=== PATIENT | female | born 1965 | race Caucasian/White ===

== ENCOUNTER 2018-01-16 11:08 | Outpatient (CLI) | payer BC | END 2018-01-16 11:09 | disposition home or self-care (01) | LOC: BICMAMMO 11:08 | PROVIDERS: ATTEND Obstetrics & Gynecology | DX: Z12.31 Encounter for screening mammogram for malignant neoplasm of breast (principal); Z80.3 Family history of malignant neoplasm of breast | CPT/HCPCS: 77063; 77067 ==

== ENCOUNTER 2019-02-04 10:08 | Outpatient (CLI) | payer BC ==
--- NOTE | 2019-02-04 13:43 | MMO ---
Bilateral MAMMO Bilat Screen [facility]. CLINICAL HISTORY: Patient is 54 years old and is seen for screening. The patient has the following family history of breast cancer: maternal uncle, at age 77. The patient has no personal history of cancer. VIEWS: The views performed were: bilateral craniocaudal with tomosynthesis and bilateral mediolateral oblique with tomosynthesis. FILMS COMPARED: The present examination has been compared to prior imaging studies performed at [facility] on 08/30/1999, at [facility] on 05/14/2007, 03/31/2009, 04/09/2010, 04/11/2011, 05/23/2012, 06/26/2013, 07/09/2014, 08/13/2015, 08/22/2016 and 01/16/2018, and at [facility] on 11/30/2004 and 01/05/2006. MAMMOGRAM FINDINGS: The breasts are heterogeneously dense, which could obscure a lesion on mammography. There are no suspicious masses, calcifications or areas of architectural distortion. IMPRESSION: THERE IS NO MAMMOGRAPHIC EVIDENCE OF MALIGNANCY. A ROUTINE FOLLOW-UP MAMMOGRAM IN 1 YEAR IS RECOMMENDED. THE RESULTS OF THIS EXAM WERE SENT TO THE PATIENT. ACR BI-RADS Category 1 - Negative MAMMOGRAPHY NOTE: 1. A negative mammogram report should not delay a biopsy if a dominant of clinically suspicious mass is present. 2. Approximately 10% to 15% of breast cancers are not detected by mammography. 3. Adenosis and dense breasts may obscure an underlying neoplasm.
== END 2019-02-04 10:09 | disposition home or self-care (01) ==
LOC: BICMAMMO 10:08
PROVIDERS: ATTEND Obstetrics & Gynecology
DX: Z12.31 Encounter for screening mammogram for malignant neoplasm of breast (principal); Z80.3 Family history of malignant neoplasm of breast
CPT/HCPCS: 77063; 77067

== ENCOUNTER 2019-06-10 10:01 | Outpatient (CLI) | payer BC ==
--- NOTE | 2019-06-10 11:01 | MMO ---
Right Breast MAMMO Unilat Diag [facility] RT+[facility]. CLINICAL HISTORY: Patient is 54 years old and is seen for diagnostic exam and palpable abnormality in the right breast. The patient has the following family history of breast cancer: maternal uncle, at age 77. The patient has no personal history of cancer. VIEWS: The views performed were: right craniocaudal with tomosynthesis; right mediolateral oblique with tomosynthesis; and right mediolateral with tomosynthesis. FILMS COMPARED: The present examination has been compared to prior imaging studies performed at [facility] on 08/22/2016, 01/16/2018, 02/04/2019 and 06/10/2019. MAMMOGRAM FINDINGS: The breast is heterogeneously dense, which could obscure a lesion on mammography. No mammographic or sonograhic abnormality is seen at the site of palpable concern in the right upper outer breast. There are no suspicious masses, suspicious calcifications, or new areas of architectural distortion. IMPRESSION: THERE IS NO MAMMOGRAPHIC EVIDENCE OF MALIGNANCY. A ROUTINE FOLLOW-UP MAMMOGRAM IN 1 YEAR IS RECOMMENDED. THE RESULTS OF THIS EXAM WERE SENT TO THE PATIENT. ACR BI-RADS Category 2 - Benign finding MAMMOGRAPHY NOTE: 1. A negative mammogram report should not delay a biopsy if a dominant of clinically suspicious mass is present. 2. Approximately 10% to 15% of breast cancers are not detected by mammography. 3. Adenosis and dense breasts may obscure an underlying neoplasm. Reported by: ASHLEY PRAJAPATI MD Electonically Signed: [id number]
--- NOTE | 2019-06-10 13:19 | ULT ---
RIGHT BREAST ULTRASOUND: HISTORY: Palpable abnormality at the 10 o'clock position of the right breast posteriorly. FINDINGS: Correlation is made to a mammogram of the same day. Sonographic evaluation of the region of palpable concern at the 10 o'clock position of the right post erior breast 11 cm from the nipple demonstrates no abnormality. FINDINGS: BIRADS category 2 - benign findings. Return to annual mammographic screening. POS: OFF
== END 2019-06-10 10:02 | disposition home or self-care (01) ==
LOC: BICMAMMO 10:01
PROVIDERS: ATTEND Obstetrics & Gynecology
DX: N63.10 Unspecified lump in the right breast, unspecified quadrant (principal); Z80.3 Family history of malignant neoplasm of breast
CPT/HCPCS: G0279

== ENCOUNTER 2020-01-21 09:29 | Outpatient (CLI) | payer BC ==
--- NOTE | 2020-01-21 09:38 | RAD ---
Right hand:3 views. INDICATIONS:Pain COMPARISON:None FINDINGS: Carpals appear normally aligned and intact. Metacarpals appear intact. Phalanges appear intact. MCP and IP joints appear unremarkable. No soft tissue abnormality. IMPRESSION: No acute finding
== END 2020-01-21 09:30 | disposition home or self-care (01) ==
LOC: RAD-FRANK 09:29
PROVIDERS: ATTEND Nurse Practitioner Family
DX: M79.641 Pain in right hand (principal)